=== PATIENT | female | born 1955 | race Caucasian/White ===

== ENCOUNTER → 2019-05-15 | Outpatient (CLI) | payer OTHER ==
[2019-05-17 14:07] LABS: HPV 16 Negative (Negative); HPV 18 Negative (Negative); HPV OTHER HR TYPES Negative (Negative)
== END ==
LOC: LAB 18:31 → LAB SHORT 18:31
PROVIDERS: Registered Nurse Community Health
DX: Z12.4 Encounter for screening for malignant neoplasm of cervix (principal)
CPT/HCPCS: 87624; G0123

== ENCOUNTER 2019-09-12 18:27 | Observation (INO) | payer OTHER ==
[~2019-09-12] VITALS: Ht 160 cm; Wt 94.2 kg
[2019-09-12 19:30] LABS: BASOPHILS ABSOLUTE AUTO 0.08 K/mm3 (0.00-0.23); BASOPHILS PERCENT AUTO 1 % (0-2); EOSINOPHILS ABSOLUTE AUTO 0.19 K/mm3 (0.00-0.68); EOSINOPHILS PERCENT AUTO 2 % (0-6); Hematocrit 42.1 % (33.0-51.0); Hemoglobin 14.4 g/dL (11.5-16.0); IMMATURE GRAN ABSOLUTE AUTO 0.01 K/mm3 (0.00-0.10); IMMATURE GRAN PERCENT AUTO 0 % (0-1); LYMPHOCYTES ABSOLUTE AUTO 2.28 K/mm3 (0.84-5.20); LYMPHOCYTES PERCENT AUTO 29 % (21-46); MONOCYTES ABSOLUTE AUTO 0.41 K/mm3 (0.16-1.47); MONOCYTES PERCENT AUTO 5 % (4-13); Mean Corpuscular HGB Conc 34.2 g/dL (31.5-36.5); Mean Corpuscular Volume 91 fL (80-100); Mean Platelet Volume 10.1 fL (9.1-12.4); NEUTROPHILS ABSOLUTE AUTO 4.97 K/mm3 (1.96-9.15); NEUTROPHILS PERCENT AUTO 63 % (41-73); Platelet Count 235 K/mm3 (150-400); RDW Coefficient Variation 12.5 % (11.7-14.2); RDW Standard Deviation 40.9 fL (35.1-46.3); Red Blood Cell Count 4.65 M/mm3 (3.80-5.20); White Blood Cell Count 7.94 K/mm3 (4.00-11.30)
[2019-09-12 19:51] LABS: Troponin I <0.015 ng/mL (0.000-0.040)
[2019-09-12 20:25] LABS: Alanine Aminotransfer (ALT/SGP 65 U/L (12-78); Albumin, Blood 3.6 g/dL (3.4-5.0); Albumin/Globulin Ratio 0.8 (0.8-1.8); Alk Phos 119 U/L (50-136); Anion Gap 5 mmol/L (6-16); Aspartate Aminotrans (AST/SGOT 50 U/L (12-37); Bilirubin, Total 0.4 mg/dL (0.1-1.0); Blood Urea Nitrogen 14 mg/dL (8-24); Bun/Creatinine Ratio 19.1 (12.0-20.0); CO2, Blood 29 mmol/L (21-32); Calcium, Blood 8.8 mg/dL (8.5-10.1); Chloride, Blood 103 mmol/L (98-108); Creatinine, Blood 0.73 mg/dL (0.40-1.00); Globulin, Blood 4.3 g/dL (2.2-4.0); Glomerular Filtration Rate >60 (60-); Glucose, Blood 254 mg/dL (70-99); Potassium, Blood 3.7 mmol/L (3.5-5.5); Sodium, Blood 137 mmol/L (136-145); Total Protein, Blood 7.9 g/dL (6.4-8.2)
[2019-09-12] MEDS ORDERED: NEURONTIN300 MG PO (20:33)
[2019-09-12] MEDS ORDERED: Nortriptyline H50 MG PO (20:33)
[2019-09-12] MEDS ORDERED: ATORVASTATIN CA40 MG PO (20:34)
[2019-09-12] MEDS ORDERED: VITAMIN D33000 UNI1 PO (20:34)
[2019-09-12] MEDS ORDERED: VITAMIN B122500 MCG PO (20:35)
[2019-09-13 00:18] LABS: International Normalized Ratio 0.94
--- NOTE | 2019-09-13 01:54 | NUR ---
NEW ADMIT TO FLOOR ARRIVED @0028 BY W/C. RECIEVED REPORT FROM ER NURSE SONAL. PT AOX4 & DENIES ANY CHEST PAIN UPON ARRIVAL TO FLOOR. I WILL CONTINUE TO MONITOR.
--- NOTE | 2019-09-13 04:30 | NUR ---
SHIFT SUMMARY AOX4. REPORTS GETTING ONLY A FEW HRS OF SLEEP SINCE SHE CAME TO FLOOR LATE LAST NIGHT. DENIES ANY CHEST PAIN, NAUSEA OR DYSPNEA THIS AM. HAS BEEN NPO, EXCEPT MEDS & ICE CHIPS PER ORDERS FOR STRESS TEST LATER TODAY. REPORTED MILD HEADACHE THIS AM & STATED IT WENT AWAY WITH REPOSITIONING IN BED. TELE IN PLACE, RUNNING NSR W/HR 79. CBG @ 237, HOSPITALIST MARTY Dee AWARE- NO COVERAGE ORDERED LAST NIGHT, WILL RECHECK CBG THIS AM. INDEPENDENT IN ROOM. CALL LIGHT IN REACH & I WILL CONTINUE TO MONITOR UNTIL DAY SHIFT RN ASSUMES CARE.
[2019-09-13 05:29] LABS: Anion Gap 5 mmol/L (6-16); Blood Urea Nitrogen 13 mg/dL (8-24); Bun/Creatinine Ratio 23.3 (12.0-20.0); CO2, Blood 29 mmol/L (21-32); Calcium, Blood 8.9 mg/dL (8.5-10.1); Chloride, Blood 105 mmol/L (98-108); Creatinine, Blood 0.56 mg/dL (0.40-1.00); Glomerular Filtration Rate >60 (60-); Glucose, Blood 217 mg/dL (70-99); Potassium, Blood 3.8 mmol/L (3.5-5.5); Sodium, Blood 139 mmol/L (136-145)
--- NOTE | 2019-09-13 14:40 | NUR ---
Initial palliative care consult: Madison is a 64 year old with a history of ASCVD, DM type 2, hyperlipidemia, morbid obesity, peripheral neuropathy. She was admitted with chest pains on 09/12/19. She currently denies any chest pain. She reports she is not and has two children who live in [place]. She moved here so that her daughters would not feel like they would have to care for her. She states she misses them, however she feels that she made a good choice for herself by moving. She rents a basement apartment and has a close friendship with her landlords who check in on her when they haven't seen her out and about. She is independent with all ADLs. She states she would like to have information on AD. AD booklet given to her along with PC business card. Reviewed the different sections of the AD and answered questions. 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 She reports that she has information at home about body donation and is planning to pursue this option although she reports her daughters are uncomfortable with her choice. She states she will continue to talk to them about it. She wants to complete this AD so that she "won't burden my kids" with decisions. 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 She reports that she doesn't want to gigi her daughters and put their careers at risk for having to care for her one day. She denies any symptoms at present. She verbalizes concern over having an expensive hospital bill. She has medicare, however she reports that she is an observation patient at this time and is worried that she will have a larger bill. Spoke with [employer], who will bring Madison a omar care packet. Madison was very happy to get this information. She has a few more test that the doctor would like to have done prior to discharge. She is anxious to go home so that she doesn't have another night's stay added to her hospital bill. PC will continue to remain available to offer assistance with AD or other care planning or symptom managment needs.
--- NOTE | 2019-09-13 17:21 | NUR ---
SHIFT SUMMARY NO ACUTE CONCERNS AT THIS TIME. PATIENT JUST WENT TO IMAGING. SHE IS ALERT AND ORIENTED, INDEPENDENT, SALINE LOCKED AT THIS TIME. SHE STARTED HER STRESS TEST AND IS AWAITING THE SECOND HALF IN THE AM.
--- NOTE | 2019-09-13 19:35 | NUR ---
PATIENT IN BED WATCHING TV. STATES SHE IS HAVING CHEST PRESSURE VERY MILD TO THE LEFT SIDE OF THE STERNUM, AND HER LEFT SIDE OF THE NECK AND FACE FEEL FUNNY. THIS HAS NOT CHANGED SINCE EARLIER TODAY WHEN THEY DID THE NUCLEAR STUDY. STATES SHE WAS TOLD THAT SHE MIGHT FEEL DIFFERENT AFTER THE STUDY. PRESSURE DOES NOT CHANGE WITH MOVEMENT OR POSITION CHANGE. STATES CONSTANT UNCHANGED. TELE REPORTS SINUS RHYTHEM. ENCOURAGED HER TO CALL IF CHANGES. WILL CONTINUE TO MONITOR. CALL LIGHT IN REACH.
--- NOTE | 2019-09-14 05:26 | NUR ---
SHIFT SUMMARY: BREANNA HAD 1 EPISODE OF INCREASE PRESURE TO HER LEFT CHEST WALL DURING THE NIGHT. NO SOB WAS NOTED. TELEMETRY REPORTED NORMAL SINUS RHYTHEM, VITALS WERE ALL WNL. PRESSURE WAS MORE THEN START OF SHIFT AND REMAINED IN SAME LOCATIONS JUST HEAVEIER SHE STATED. SHE WAS MONITORED WITH NO OTHER EVENTS OCCURRING. NPO AFTER MIDNIGHT FOR STRESS TEST. MEDS GIVEN PER EMAR. WILL REPORT OFF.
[2019-09-14] MEDS ORDERED: PANT20 PO (13:12)
[2019-09-14] MEDS ORDERED: METF500 PO (13:12)
[2019-09-14] MEDS ORDERED: Aspir 8181 MG PO (13:12)
--- NOTE | 2019-09-14 13:20 | NUR ---
Visited with Madison this afternoon. She is packing her things and is going home this afternoon. She reports she is feeling better and states that the testing came back and she has no new problems with her heart. She reports that the symptoms she has been having are likely related to acid reflux. She is very appreciative of the AD paperwork she rec'd and plans to complete it at home and take a copy to her PCP and bring a copy in to the medical records department at the hospital. No further needs at this time.
--- NOTE | 2019-09-14 14:57 | NUR ---
PATIENT DISCHARGED. SHE AMBULATED SELF OUT OF FACILITY. ABLE TO MAKE HER NEEDS KNOWN. NO ACUTE ISSUES NOTED. MEDS FA[facility]ED TO [facility] PER REQUEST.
== END 2019-09-14 14:28 | disposition home or self-care (01) ==
LOC: ER 18:27 → MEDS 18:28 → ENPENDDIS 09-14 12:30 → MEDS 09-14 14:28
PROVIDERS: Nurse Practitioner Acute Care; Physician Assistant; ADMIT Internal Medicine
DX: R07.9 Chest pain, unspecified (principal); E11.65 Type 2 diabetes mellitus with hyperglycemia; E11.42 Type 2 diabetes mellitus with diabetic polyneuropathy; E78.5 Hyperlipidemia, unspecified; I10 Essential (primary) hypertension; I25.10 Atherosclerotic heart disease of native coronary artery without angina pectoris; E66.01 Morbid (severe) obesity due to excess calories; Z68.37 Body mass index [BMI] 37.0-37.9, adult; Z79.899 Other long term (current) drug therapy; Z79.82 Long term (current) use of aspirin; Z79.84 Long term (current) use of oral hypoglycemic drugs; Z88.6 Allergy status to analgesic agent; Z88.5 Allergy status to narcotic agent; Z88.1 Allergy status to other antibiotic agents
CPT/HCPCS: 36415; 71046; 78452; 80048; 80053; 82947; 84484; 85025; 85610; 85730; 93005; 93010; 93017; 96372; 96374; 99285-25; A9500; G0378; J0706; J1644; J2405; J2785

== ENCOUNTER → 2020-05-05 | Outpatient (CLI) | payer MEDICARE ==
[~2020-05-05] MED LIST: ATORVASTATIN CA40 MG PO; Aspir 8181 MG PO; METF500 PO; NEURONTIN300 MG PO; Nortriptyline H50 MG PO; PANT20 PO; VITAMIN B122500 MCG PO; VITAMIN D33000 UNI1 PO
[2020-05-05 13:44] LABS: Anion Gap 4 mmol/L (6-16); Blood Urea Nitrogen 7 mg/dL (8-24); Bun/Creatinine Ratio 10.8 (12.0-20.0); CO2, Blood 29 mmol/L (21-32); Calcium, Blood 8.8 mg/dL (8.5-10.1); Chloride, Blood 107 mmol/L (98-108); Creatinine, Blood 0.65 mg/dL (0.40-1.00); Glomerular Filtration Rate >60 (60-); Glucose, Blood 153 mg/dL (70-99); Potassium, Blood 3.7 mmol/L (3.5-5.5); Sodium, Blood 140 mmol/L (136-145)
== END | disposition home or self-care (01) ==
LOC: LAB 13:01 → LAB SHORT 13:01
PROVIDERS: Psychiatry & Neurology Neurology
DX: H53.121 Transient visual loss, right eye (principal); R20.2 Paresthesia of skin
CPT/HCPCS: 80048

== ENCOUNTER → 2020-10-06 | Outpatient (CLI) | payer MEDICARE ==
[2020-10-06 18:35] LABS: BASOPHILS ABSOLUTE AUTO 0.09 K/mm3 (0.00-0.23); BASOPHILS PERCENT AUTO 1 % (0-2); EOSINOPHILS ABSOLUTE AUTO 0.27 K/mm3 (0.00-0.68); EOSINOPHILS PERCENT AUTO 4 % (0-6); Hematocrit 42.1 % (33.0-51.0); Hemoglobin 13.5 g/dL (11.5-16.0); IMMATURE GRAN ABSOLUTE AUTO 0.01 K/mm3 (0.00-0.10); IMMATURE GRAN PERCENT AUTO 0 % (0-1); LYMPHOCYTES ABSOLUTE AUTO 2.18 K/mm3 (0.84-5.20); LYMPHOCYTES PERCENT AUTO 31 % (21-46); MONOCYTES ABSOLUTE AUTO 0.41 K/mm3 (0.16-1.47); MONOCYTES PERCENT AUTO 6 % (4-13); Mean Corpuscular HGB 29.7 pg (26.0-34.0); Mean Corpuscular HGB Conc 32.1 g/dL (31.5-36.5); Mean Corpuscular Volume 93 fL (80-100); Mean Platelet Volume 10.1 fL (9.1-12.4); NEUTROPHILS ABSOLUTE AUTO 4.15 K/mm3 (1.96-9.15); NEUTROPHILS PERCENT AUTO 58 % (41-73); Platelet Count 231 K/mm3 (150-400); RDW Standard Deviation 41.3 fL (35.1-46.3); Red Blood Cell Count 4.54 M/mm3 (3.80-5.20); White Blood Cell Count 7.11 K/mm3 (4.00-11.30)
[2020-10-06 23:04] LABS: Alanine Aminotransfer (ALT/SGP 46 U/L (12-78); Albumin, Blood 3.7 g/dL (3.4-5.0); Albumin/Globulin Ratio 0.9 (0.8-1.8); Alk Phos 125 U/L (50-136); Anion Gap 10 mmol/L (6-16); Aspartate Aminotrans (AST/SGOT 40 U/L (12-37); Bilirubin, Total 0.6 mg/dL (0.1-1.0); Blood Urea Nitrogen 11 mg/dL (8-24); Bun/Creatinine Ratio 15.2 (12.0-20.0); CHOL/HDL RATIO 5.4; CO2, Blood 27 mmol/L (21-32); Calcium, Blood 9.2 mg/dL (8.5-10.1); Chloride, Blood 104 mmol/L (98-108); Cholesterol 210 mg/dL (50-200); Creatinine, Blood 0.73 mg/dL (0.40-1.00); Free Thyroxine 0.86 ng/dL (0.70-1.60); Globulin, Blood 3.9 g/dL (2.2-4.0); Glomerular Filtration Rate >60 (60-); Glucose, Blood 210 mg/dL (70-99); HDL Cholesterol 39 mg/dL (>39); Low Density Lipoprotein Chol 115 mg/dL (0-110); Potassium, Blood 4.1 mmol/L (3.5-5.5); Sodium, Blood 141 mmol/L (136-145); Total Protein, Blood 7.6 g/dL (6.4-8.2); Triglycerides 278 mg/dL (30-160); Very Low Density Lipoprot Chol 55 mg/dL (6-32)
== END | disposition home or self-care (01) ==
LOC: LAB SHORT 17:31 → LAB 17:31
PROVIDERS: Family Medicine
DX: E11.9 Type 2 diabetes mellitus without complications (principal); E78.1 Pure hyperglyceridemia; R53.83 Other fatigue; R26.89 Other abnormalities of gait and mobility
CPT/HCPCS: 80053; 80061; 82607; 82746; 84439; 84443; 85025

== ENCOUNTER 2020-11-03 20:29 | Emergency (ER) | payer MEDICARE ==
[~2020-11-03] VITALS: Ht 160 cm; Wt 96.6 kg
[2020-11-03 20:56] LABS: BASOPHILS ABSOLUTE AUTO 0.03 K/mm3 (0.00-0.23); BASOPHILS PERCENT AUTO 0 % (0-2); EOSINOPHILS ABSOLUTE AUTO 0.01 K/mm3 (0.00-0.68); EOSINOPHILS PERCENT AUTO 0 % (0-6); Hematocrit 41.6 % (33.0-51.0); Hemoglobin 13.6 g/dL (11.5-16.0); IMMATURE GRAN ABSOLUTE AUTO 0.05 K/mm3 (0.00-0.10); IMMATURE GRAN PERCENT AUTO 1 % (0-1); LYMPHOCYTES ABSOLUTE AUTO 1.07 K/mm3 (0.84-5.20); LYMPHOCYTES PERCENT AUTO 13 % (21-46); MONOCYTES ABSOLUTE AUTO 0.04 K/mm3 (0.16-1.47); MONOCYTES PERCENT AUTO 1 % (4-13); Mean Corpuscular HGB 29.4 pg (26.0-34.0); Mean Corpuscular HGB Conc 32.7 g/dL (31.5-36.5); Mean Corpuscular Volume 90 fL (80-100); Mean Platelet Volume 9.6 fL (9.1-12.4); NEUTROPHILS ABSOLUTE AUTO 7.34 K/mm3 (1.96-9.15); NEUTROPHILS PERCENT AUTO 86 % (41-73); Platelet Count 264 K/mm3 (150-400); RDW Coefficient Variation 11.7 % (11.7-14.2); RDW Standard Deviation 38.6 fL (35.1-46.3); Red Blood Cell Count 4.62 M/mm3 (3.80-5.20); White Blood Cell Count 8.54 K/mm3 (4.00-11.30)
[2020-11-03 21:15] LABS: Alanine Aminotransfer (ALT/SGP 38 U/L (12-78); Albumin, Blood 3.6 g/dL (3.4-5.0); Albumin/Globulin Ratio 0.9 (0.8-1.8); Alk Phos 137 U/L (50-136); Anion Gap 7 mmol/L (6-16); Aspartate Aminotrans (AST/SGOT 23 U/L (12-37); Bilirubin, Total 0.4 mg/dL (0.1-1.0); Blood Urea Nitrogen 20 mg/dL (8-24); Bun/Creatinine Ratio 33.1 (12.0-20.0); CO2, Blood 25 mmol/L (21-32); Calcium, Blood 8.6 mg/dL (8.5-10.1); Chloride, Blood 103 mmol/L (98-108); Globulin, Blood 4.2 g/dL (2.2-4.0); Glomerular Filtration Rate >60 (60-); Glucose, Blood 475 mg/dL (70-99); Potassium, Blood 4.3 mmol/L (3.5-5.5); Sodium, Blood 135 mmol/L (136-145); Total Protein, Blood 7.8 g/dL (6.4-8.2)
== END 2020-11-03 23:36 | disposition home or self-care (01) ==
LOC: ER 20:29
PROVIDERS: Physician Assistant
DX: E11.65 Type 2 diabetes mellitus with hyperglycemia (principal); R51.9 Headache, unspecified; I25.10 Atherosclerotic heart disease of native coronary artery without angina pectoris; E78.5 Hyperlipidemia, unspecified; E11.40 Type 2 diabetes mellitus with diabetic neuropathy, unspecified; Z79.84 Long term (current) use of oral hypoglycemic drugs; Z88.6 Allergy status to analgesic agent; Z88.1 Allergy status to other antibiotic agents; Z88.5 Allergy status to narcotic agent; Z79.82 Long term (current) use of aspirin; Z79.899 Other long term (current) drug therapy
CPT/HCPCS: 36415; 80053; 82947; 85025; 96374; 96375; 99284-25; J1885; J2405; J7030